=== PATIENT | female | born 1965 | race African-American/Black ===

== ENCOUNTER 2025-01-20 10:08 | Outpatient (CLI) | payer MEDICARE | END 2025-01-20 10:09 | disposition home or self-care (01) | LOC: CSHMAMMO 10:08 | PROVIDERS: ATTEND Student in an Organized Health Care Education/Training Program | DX: Z08 Encounter for follow-up examination after completed treatment for malignant neoplasm (principal); N63.20 Unspecified lump in the left breast, unspecified quadrant; Z85.3 Personal history of malignant neoplasm of breast | CPT/HCPCS: 76642; 77066; G0279 ==

== ENCOUNTER → 2025-01-30 | Day surgery (SDC) | payer MEDICARE | LOC: CSHULT 12:26 | PROVIDERS: ATTEND Student in an Organized Health Care Education/Training Program | PROC: 0HBU3ZX Excision of Left Breast, Percutaneous Approach, Diagnostic (ICD-10-PCS; principal; 2025-01-30) | DX: D24.2 Benign neoplasm of left breast (principal) | CPT/HCPCS: 19083; A4648; 88305 ==